=== PATIENT | male | born 1985 | race Caucasian/White ===

== ENCOUNTER 2016-03-22 17:53 | Emergency (ER) | payer BC ==
--- NOTE | 2016-03-22 18:44 | EDDOCDS ---
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 Acute neurological deficits are not present. Mechanism of Injury: Bending down. Adult Sepsis Screening: The patient does not have new or worsening altered mentation. Patient's respiratory rate is less than 22. Systolic blood pressure is greater than 100. Patient has a qSOFA score of 0- Negative Sepsis Screen. Suicide/Homicide risk assessment- the patient denies having any suicidal and/or homicidal ideations and does not present with any other emotional, behavioral or mental health complaints. Status: Patient is not a service delivery consultant or dependent. Transition of care: patient was not received from another setting of care. 17:59 Acuity: KOSTA Level 4 js13 17:59 Method Of Arrival: Walkin/Carried/Asstd js13 Triage Assessment: 18:02 General: Appears in no apparent distress, Behavior is appropriate for age, cooperative. js13 Pain: Location: low back area Pain currently is 8 out of 10 on a pain scale. Pt Declines HIV testing. Neurological: Level of Consciousness is awake, alert. Respiratory: Airway is patent Respiratory effort is even, unlabored, Respiratory pattern is regular, symmetrical. Derm: Skin is pink, warm & dry. Musculoskeletal: No deficits noted. Historical: - Allergies: SULFA (SULFONAMIDES); - Home Meds: 1. none - PMHx: Frequent Bloody Noses; Migraines; - PSHx: Septoplasty; Hernia repair; Pilonidal Cyst Removal; - Social history: Smoking status: Patient states was never smoker of tobacco. No barriers to communication noted, The patient speaks fluent Serbian. - Family history: Not pertinent. - : The pt / caregiver states he / she is not on anticoagulants. Home medication list is obtained from the patient. - Exposure Risk Screening:: None identified. Screenin:02 Screening information is obtained from the patient. Fall risk: No risks identified. js13 Assistance ADL's: requires no assistance with activities of daily living. Abuse/DV Screen: The patient / caregiver reports he/she is: not in a situation that causes fear, pain or injury. Nutritional screening: No deficits noted. Advance Directives: There is no active DNR order. home support is adequate. Assessment: 18:42 General: Appears in no apparent distress, comfortable, Behavior is appropriate for age, js13 cooperative. Pain: Location: low back area. Neurological: Level of Consciousness is awake, alert. Respiratory: Airway is patent. Derm: Skin is pink, warm & dry. Vital Signs: 17:56 BP 136 / 87; Pulse 117; Resp 18; Temp 97.5(O); Pulse Ox 98% on R/A; Weight 154.22 kg; sew Height 5 ft. 11 in. (180.34 cm); Pain 8/10; 17:56 Body Mass Index 47.42 (154.22 kg, 180.34 cm) sew Vitals: 17:56 Log In Time: March 22, 2016 at 17:50. sew ED Course: 17:54 Patient visited by Tiffanie Palacios. sew 17:54 Patient moved to Waiting sew 17:56 No Pcp is Private Physician. sew 17:57 Patient visited by Tiffanie Palacios. sew 17:57 Patient moved to Pre RCE sew 18:01 Triage Initiated js13 18:02 The patient / caregiver is instructed regarding the plan of care and ED course. js13 18:02 No IV's were initiated during this patient's visit. No procedures done that require js13 assistance. 18:03 Patient visited by Kaela Baptiste RN. js13 18:14 Patient moved to Triage 1 jb5 18:21 [facility]. ar2 18:21 Amanuel Arreola MD is Attending Physician. ar2 18:21 Patient visited by Malick Ochoa PA-C. ar2 18:37 Anders Eddy is Referral Physician. ar2 18:38 [facility] is Referral Physician. ar2 18:42 Kaela Baptiste RN is Primary Nurse. js13 Order Results: There are currently no results for this order. Outcome: 18:38 Discharge ordered by Provider. ar2 18:42 Discharge Assessment: Patient awake, alert and oriented x 3. No cognitive and/or js13 functional deficits noted. Patient verbalized understanding of disposition instructions. patient administered narcotics - no. The following High Risk Discharge criteria are identified: None. Discharged to home ambulatory. Condition: good Condition: stable. Discharge instructions given to patient, Instructed on discharge instructions, follow up and referral plans. medication usage, Demonstrated understanding of instructions, medications, Pt was receptive of discharge instructions/ teaching. Prescriptions given X 2, Work note provided to patient. No special radiology studies were completed. Property :Personal belongings accompany Pt. 18:43 Patient left the ED. js13 Signatures: Nguyen Mauro, CHINA PAINTER CHINA PAINTER jb5 Malick Ochoa PA-C PAKaela Lisa,RN RN js13 Tiffanie Palacios MTDD
--- NOTE | 2016-03-22 18:44 | EDDOCDS ---
Physician Documentation [facility] Name: Darius Da Silva Age: 30 yrs Sex: Male : 1985 Arrival Date: 03/22/2016 Time: 17:53 Bed Triage 1 Private MD: No Pcp Disposition: 03/22/16 18:38 Discharged to Home/Self Care. Impression: Strain of muscle, fascia and tendon of lower back. - Condition is Stable. - Discharge Instructions: Back Pain, Adult, Muscle Strain. - Prescriptions for Ibuprofen 800 mg Oral Tablet - take 1 tablet by ORAL route every 8 hours As needed take with food; 30 tablet. Cyclobenzaprine 10 mg Oral Tablet - take 1 tablet by ORAL route 3 times per day As needed; 15 tablet. - Work Release Form - 3 day, Medication Reconciliation, Local Pharmacy Hours form. - Follow up: Anders Eddy; When: As needed; Reason: Recheck today's complaints. [facility]; When: Call to arrange an appointment; Reason: Recheck today's complaints, To establish care. Follow up: Emergency Department; When: As needed; Reason: Worsening of conditions. - Problem is new. - Symptoms are unchanged. Historical: - Allergies: SULFA (SULFONAMIDES); - Home Meds: 1. none - PMHx: Frequent Bloody Noses; Migraines; - PSHx: Septoplasty; Hernia repair; Pilonidal Cyst Removal; - Social history: Smoking status: Patient states was never smoker of tobacco. No barriers to communication noted, The patient speaks fluent Sami. - Family history: Not pertinent. - : The pt / caregiver states he / she is not on anticoagulants. Home medication list is obtained from the patient. - Exposure Risk Screening:: None identified. Vital Signs: 03/22 17:56 BP 136 / 87; Pulse 117; Resp 18; Temp 97.5(O); Pulse Ox 98% on R/A; Weight 154.22 kg / sew 340 lbs; Height 5 ft. 11 in. (180.34 cm); Pain 8/10; 17:56 Body Mass Index 47.42 (154.22 kg, 180.34 cm) sew Signatures: Malick Ochoa PA-C PA-C ar2 Kaela Baptiste RN RN js13 MTDD
--- NOTE | 2016-03-26 09:42 | EDDOCDS ---
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 Acute neurological deficits are not present. Mechanism of Injury: Bending down. Adult Sepsis Screening: The patient does not have new or worsening altered mentation. Patient's respiratory rate is less than 22. Systolic blood pressure is greater than 100. Patient has a qSOFA score of 0- Negative Sepsis Screen. Suicide/Homicide risk assessment- the patient denies having any suicidal and/or homicidal ideations and does not present with any other emotional, behavioral or mental health complaints. Status: Patient is not a emergency services director or dependent. Transition of care: patient was not received from another setting of care. 17:59 Acuity: KOSTA Level 4 js13 17:59 Method Of Arrival: Walkin/Carried/Asstd js13 Triage Assessment: 18:02 General: Appears in no apparent distress, Behavior is appropriate for age, cooperative. js13 Pain: Location: low back area Pain currently is 8 out of 10 on a pain scale. Pt Declines HIV testing. Neurological: Level of Consciousness is awake, alert. Respiratory: Airway is patent Respiratory effort is even, unlabored, Respiratory pattern is regular, symmetrical. Derm: Skin is pink, warm & dry. Musculoskeletal: No deficits noted. Historical: - Allergies: SULFA (SULFONAMIDES); - Home Meds: 1. none - PMHx: Frequent Bloody Noses; Migraines; - PSHx: Septoplasty; Hernia repair; Pilonidal Cyst Removal; - Social history: Smoking status: Patient states was never smoker of tobacco. No barriers to communication noted, The patient speaks fluent Yoruba. - Family history: Not pertinent. - : The pt / caregiver states he / she is not on anticoagulants. Home medication list is obtained from the patient. - Exposure Risk Screening:: None identified. Screenin:02 Screening information is obtained from the patient. Fall risk: No risks identified. js13 Assistance ADL's: requires no assistance with activities of daily living. Abuse/DV Screen: The patient / caregiver reports he/she is: not in a situation that causes fear, pain or injury. Nutritional screening: No deficits noted. Advance Directives: There is no active DNR order. home support is adequate. Assessment: 18:42 General: Appears in no apparent distress, comfortable, Behavior is appropriate for age, js13 cooperative. Pain: Location: low back area. Neurological: Level of Consciousness is awake, alert. Respiratory: Airway is patent. Derm: Skin is pink, warm & dry. Vital Signs: 17:56 BP 136 / 87; Pulse 117; Resp 18; Temp 97.5(O); Pulse Ox 98% on R/A; Weight 154.22 kg; sew Height 5 ft. 11 in. (180.34 cm); Pain 8/10; 17:56 Body Mass Index 47.42 (154.22 kg, 180.34 cm) sew Vitals: 17:56 Log In Time: March 22, 2016 at 17:50. [facility] [place]: 17:54 Patient visited by Tiffanie Palacios. sew 17:54 Patient moved to Waiting sew 17:56 No Pcp is Private Physician. sew 17:57 Patient visited by Tiffanie Palacios. sew 17:57 Patient moved to Pre E sew 18:01 Triage Initiated js13 18:02 The patient / caregiver is instructed regarding the plan of care and ED course. js13 18:02 No IV's were initiated during this patient's visit. No procedures done that require js13 assistance. 18:03 Patient visited by Kaela Baptiste RN. js13 18:14 Patient moved to Triage 1 jb5 18:21 Malick Ochoa PA-C is PHCP. ar2 18:21 Amanuel Arreola MD is Attending Physician. ar2 18:21 Patient visited by Malick Ochoa PA-C. ar2 18:37 Anders Eddy is Referral Physician. ar2 18:38 [facility] is Referral Physician. ar2 18:42 Kaela Baptiste RN is Primary Nurse. js13 03/23 08:43 T-Sheet-- Draft Copy was scanned into [employer] and attached to record. [facility] Order Results: There are currently no results for this order. Outcome: 03/22 18:38 Discharge ordered by Provider. ar2 18:42 Discharge Assessment: Patient awake, alert and oriented x 3. No cognitive and/or js13 functional deficits noted. Patient verbalized understanding of disposition instructions. patient administered narcotics - no. The following High Risk Discharge criteria are identified: None. Discharged to home ambulatory. Condition: good Condition: stable. Discharge instructions given to patient, Instructed on discharge instructions, follow up and referral plans. medication usage, Demonstrated understanding of instructions, medications, Pt was receptive of discharge instructions/ teaching. Prescriptions given X 2, Work note provided to patient. No special radiology studies were completed. Property :Personal belongings accompany Pt. 18:43 Patient left the ED. js13 Signatures: Nguyen Mauro, CALLIE TRACKMOBILE OPERATOR jb5 Malick Ochoa, SOO PASowmya ar2 Kaela Baptiste,MARCIANO RN [email or web address] Philip, Tiffanie Fermin, Tiffanie younger Chart Complete BA
--- NOTE | 2016-03-26 09:42 | EDDOCDS ---
Physician Documentation [facility] Name: Darius Da Silva Age: 30 yrs Sex: Male : 1985 Arrival Date: 03/22/2016 Time: 17:53 Bed Triage 1 Private MD: No Pcp Disposition: 03/22/16 18:38 Discharged to Home/Self Care. Impression: Strain of muscle, fascia and tendon of lower back. - Condition is Stable. - Discharge Instructions: Back Pain, Adult, Muscle Strain. - Prescriptions for Ibuprofen 800 mg Oral Tablet - take 1 tablet by ORAL route every 8 hours As needed take with food; 30 tablet. Cyclobenzaprine 10 mg Oral Tablet - take 1 tablet by ORAL route 3 times per day As needed; 15 tablet. - Work Release Form - 3 day, Medication Reconciliation, Local Pharmacy Hours form. - Follow up: Anders Eddy; When: As needed; Reason: Recheck today's complaints. [facility]; When: Call to arrange an appointment; Reason: Recheck today's complaints, To establish care. Follow up: Emergency Department; When: As needed; Reason: Worsening of conditions. - Problem is new. - Symptoms are unchanged. Historical: - Allergies: SULFA (SULFONAMIDES); - Home Meds: 1. none - PMHx: Frequent Bloody Noses; Migraines; - PSHx: Septoplasty; Hernia repair; Pilonidal Cyst Removal; - Social history: Smoking status: Patient states was never smoker of tobacco. No barriers to communication noted, The patient speaks fluent Lao. - Family history: Not pertinent. - : The pt / caregiver states he / she is not on anticoagulants. Home medication list is obtained from the patient. - Exposure Risk Screening:: None identified. Vital Signs: 03/22 17:56 BP 136 / 87; Pulse 117; Resp 18; Temp 97.5(O); Pulse Ox 98% on R/A; Weight 154.22 kg / sew 340 lbs; Height 5 ft. 11 in. (180.34 cm); Pain 8/10; 17:56 Body Mass Index 47.42 (154.22 kg, 180.34 cm) sew MDM: 03/23 08:43 T-Sheet-- Draft Copy was scanned into [employer] and attached to record. [facility] Signatures: Malick Ochoa PA-C PA-C ar2 Kaela BaptisteRN RN js13 Tiffanie Fermin The chart was reviewed and I authenticate all verbal orders and agree with the evaluation and treatment provided.Attachments: 08:43 T-Sheet-- Draft Copy [facility] Chart Complete MTDD
--- NOTE | 2016-03-26 09:42 | EDDOCDS ---
Physician Documentation [facility] Name: Darius Da Silva Age: 30 yrs Sex: Male : 1985 Arrival Date: 03/22/2016 Time: 17:53 Bed Triage 1 Private MD: No Pcp Disposition: 03/22/16 18:38 Discharged to Home/Self Care. Impression: Strain of muscle, fascia and tendon of lower back. - Condition is Stable. - Discharge Instructions: Back Pain, Adult, Muscle Strain. - Prescriptions for Ibuprofen 800 mg Oral Tablet - take 1 tablet by ORAL route every 8 hours As needed take with food; 30 tablet. Cyclobenzaprine 10 mg Oral Tablet - take 1 tablet by ORAL route 3 times per day As needed; 15 tablet. - Work Release Form - 3 day, Medication Reconciliation, Local Pharmacy Hours form. - Follow up: Anders Eddy; When: As needed; Reason: Recheck today's complaints. [facility]; When: Call to arrange an appointment; Reason: Recheck today's complaints, To establish care. Follow up: Emergency Department; When: As needed; Reason: Worsening of conditions. - Problem is new. - Symptoms are unchanged. Historical: - Allergies: SULFA (SULFONAMIDES); - Home Meds: 1. none - PMHx: Frequent Bloody Noses; Migraines; - PSHx: Septoplasty; Hernia repair; Pilonidal Cyst Removal; - Social history: Smoking status: Patient states was never smoker of tobacco. No barriers to communication noted, The patient speaks fluent Lao. - Family history: Not pertinent. - : The pt / caregiver states he / she is not on anticoagulants. Home medication list is obtained from the patient. - Exposure Risk Screening:: None identified. Vital Signs: 03/22 17:56 BP 136 / 87; Pulse 117; Resp 18; Temp 97.5(O); Pulse Ox 98% on R/A; Weight 154.22 kg / sew 340 lbs; Height 5 ft. 11 in. (180.34 cm); Pain 8/10; 17:56 Body Mass Index 47.42 (154.22 kg, 180.34 cm) sew MDM: 03/23 08:43 T-Sheet-- Draft Copy was scanned into [employer] and attached to record. [facility] Signatures: Malick Ochoa PA-C PA-C ar2 Kaela BaptisteRN RN js13 Tiffanie Fermin The chart was reviewed and I authenticate all verbal orders and agree with the evaluation and treatment provided.Attachments: 08:43 T-Sheet-- Draft Copy [facility] Chart Complete MTDD
== END 2016-03-22 18:43 | disposition home or self-care (01) ==
LOC: M ED 17:53
DX: S39.012A Strain of muscle, fascia and tendon of lower back, initial encounter (principal); X50.1XXA Overexertion from prolonged static or awkward postures, initial encounter; Y92.9 Unspecified place or not applicable; Y93.89 Activity, other specified; Y99.0 Civilian activity done for income or pay; Z88.2 Allergy status to sulfonamides

== ENCOUNTER → 2017-05-13 | Outpatient (REF) | payer BC | LOC: M LAB REF 16:39 | DX: H90.41 Sensorineural hearing loss, unilateral, right ear, with unrestricted hearing on the contralateral side (principal) | CPT/HCPCS: 87205 ==

== ENCOUNTER → 2017-06-20 | Outpatient (REF) | payer BC | LOC: M LAB REF 12:26 | DX: L98.9 Disorder of the skin and subcutaneous tissue, unspecified (principal) ==

== ENCOUNTER → 2020-02-18 | Outpatient (CLI) | payer BC ==
[~2020-02-18] MED LIST: CIPR-249 PO; FLAG500T PO; PERC5TAB12 PO
--- NOTE | 2020-02-18 10:48 | REP ---
INDICATION: RIGHT KNEE PAIN. COMPARISON: None. TECHNIQUE: Five views. FINDINGS: Five views of the right knee demonstrate normal bones, joints and soft tissues. No fracture, subluxation, or joint effusion is seen. No erosive change.. . No opaque foreign body noted. IMPRESSION: Negative right knee radiographic series. <Electronically signed by John Marlow > 02/18/20 [id number]
== END ==
LOC: M WUC 10:07
PROVIDERS: ATTEND Physician Assistant Medical
DX: M25.561 Pain in right knee (principal)

== ENCOUNTER 2020-11-02 22:57 | Emergency (ER) | payer BC ==
[~2020-11-02] VITALS: Ht 180.3 cm; Wt 159.1 kg
[2020-11-02 22:58] VITALS: BP 137/93
--- NOTE | 2020-11-03 00:23 | REPVR ---
PROCEDURE INFORMATION: Exam: XR Right Knee Exam date and time: 11/02/2020 11:37 PM Age: 35 years old Clinical indication: Other: Right knee pain TECHNIQUE: Imaging protocol: XR Right knee. Views: 4 or more views. COMPARISON: CR KNEE COMPLETE 02/18/2020 10:23 AM FINDINGS: Bones/joints: There is suggestion of some amorphous calcification of the medial collateral ligament adjacent to the medial femoral condyle. No fracture. Joint effusion in the suprapatellar recess. Soft tissues: Normal. IMPRESSION: 1. Joint effusion. 2. Otherwise negative right knee. Electronically signed by: Aman Kelly On 11/03/2020 00:23:06 AM
== END 2020-11-03 01:28 | disposition left against medical advice (07) ==
LOC: M ED 22:57
DX: Z53.21 Procedure and treatment not carried out due to patient leaving prior to being seen by health care provider (principal)

== ENCOUNTER → 2020-12-22 | Outpatient (REF) ==
[2020-12-22 15:46] LABS: RSV AMPLIFICATION NEGATIVE (NEGATIVE)
== END ==
LOC: M EMP 14:56
PROVIDERS: ATTEND Family Medicine
DX: Z11.59 Encounter for screening for other viral diseases (principal)

== ENCOUNTER → 2021-04-04 | Outpatient (REF) | payer BC ==
[2021-04-04 17:46] LABS: HEMATOCRIT 40.5 % (42.0-52.0); HEMOGLOBIN 13.8 g/dl (13.5-17.5); MEAN CORPUSCULAR HEMOGLOBIN 29.4 pg (27.0-33.0); MEAN CORPUSCULAR HGB CONC 34.1 g/dl (32.0-36.5); MEAN CORPUSCULAR VOLUME 86.4 fl (80.0-96.0); PLATELET COUNT, AUTOMATED 240 10^3/uL (150-450); RED BLOOD COUNT 4.69 10^6/uL (4.30-6.10); WHITE BLOOD COUNT 6.2 10^3/uL (4.0-10.0)
[2021-04-04 18:40] LABS: HEMOGLOBIN A1c 6.1 %
[2021-04-04 19:46] LABS: ALBUMIN 4.1 GM/DL (3.2-5.2); ALT/SGPT 52 U/L (12-78); BILIRUBIN,TOTAL 0.5 MG/DL (0.2-1.0); BLOOD UREA NITROGEN 19 MG/DL (7-18); CARBON DIOXIDE LEVEL 27 MEQ/L (21-32); CHLORIDE LEVEL 103 MEQ/L (98-107); CHOLESTEROL LEVEL 179 MG/DL (<200); CHOLESTEROL RISK RATIO 11.187 (<5); CREATININE FOR GFR 0.98 MG/DL (0.70-1.30); FREE T4 0.93 NG/DL (0.76-1.46); GLOMERULAR FILTRATION RATE > 60.0 (>60); GLUCOSE, FASTING 148 MG/DL (70-100); HDL CHOLESTEROL 16 MG/DL (>40); NON-HDL-C 163 MG/DL; POTASSIUM SERUM 4.1 MEQ/L (3.5-5.1); SODIUM LEVEL 137 MEQ/L (136-145); TOTAL PROTEIN 7.7 GM/DL (6.4-8.2); TRIGLYCERIDES LEVEL 1262 MG/DL (<150)
== END ==
LOC: M SFHCADAM 15:20
PROVIDERS: ATTEND Physician Assistant
DX: E78.1 Pure hyperglyceridemia (principal); R73.9 Hyperglycemia, unspecified; Z87.19 Personal history of other diseases of the digestive system

== ENCOUNTER → 2021-07-17 | Outpatient (REF) | payer BC ==
[2021-07-17 11:28] LABS: HEMOGLOBIN A1c 6.4 %
[2021-07-17 11:43] LABS: ALT/SGPT 38 U/L (12-78); BILIRUBIN,TOTAL 1.1 MG/DL (0.2-1.0); BLOOD UREA NITROGEN 11 MG/DL (7-18); CALCIUM LEVEL 9.4 MG/DL (8.5-10.1); CARBON DIOXIDE LEVEL 26 MEQ/L (21-32); CHLORIDE LEVEL 103 MEQ/L (98-107); CHOLESTEROL LEVEL 113 MG/DL (<200); CHOLESTEROL RISK RATIO 7.533 (<5); CREATININE FOR GFR 0.89 MG/DL (0.70-1.30); GLOMERULAR FILTRATION RATE > 60.0 (>60); GLUCOSE, FASTING 163 MG/DL (70-100); HDL CHOLESTEROL 15 MG/DL (>40); NON-HDL-C 98 MG/DL; SODIUM LEVEL 137 MEQ/L (136-145); TOTAL PROTEIN 7.7 GM/DL (6.4-8.2); TRIGLYCERIDES LEVEL 776 MG/DL (<150)
== END ==
LOC: M LAB REF 09:33
PROVIDERS: ATTEND Physician Assistant
DX: E78.1 Pure hyperglyceridemia (principal); R73.9 Hyperglycemia, unspecified

== ENCOUNTER → 2021-08-14 | Outpatient (REF) | payer BC ==
[2021-08-14 12:09] LABS: BASO # 0.1 10^3/uL (0.0-0.2); BASO % 1.1 % (0.0-1.0); EOS # 0.3 10^3/uL (0.0-0.5); EOS % 3.7 % (0.0-3.0); HEMOGLOBIN 14.8 g/dl (13.5-17.5); LYMPH # 2.8 10^3/uL (1.5-5.0); LYMPH % 36.8 % (24.0-44.0); MEAN CORPUSCULAR HEMOGLOBIN 30.8 pg (27.0-33.0); MEAN CORPUSCULAR HGB CONC 35.2 g/dl (32.0-36.5); MEAN CORPUSCULAR VOLUME 87.5 fl (80.0-96.0); MONO # 0.5 10^3/uL (0.0-0.8); NEUTROPHILS # 3.9 10^3/uL (1.5-8.5); PLATELET COUNT, AUTOMATED 205 10^3/uL (150-450); WHITE BLOOD COUNT 7.6 10^3/uL (4.0-10.0)
[2021-08-14 12:44] LABS: ALBUMIN 3.9 GM/DL (3.2-5.2); ALT/SGPT 56 U/L (12-78); AMYLASE 32 U/L (25-115); BILIRUBIN,TOTAL 0.7 MG/DL (0.2-1.0); BLOOD UREA NITROGEN 14 MG/DL (7-18); CALCIUM LEVEL 9.1 MG/DL (8.5-10.1); CARBON DIOXIDE LEVEL 29 MEQ/L (21-32); CHLORIDE LEVEL 104 MEQ/L (98-107); CREATININE FOR GFR 0.98 MG/DL (0.70-1.30); GLOMERULAR FILTRATION RATE > 60.0 (>60); GLUCOSE, FASTING 174 MG/DL (70-100); LIPASE 102 U/L (73-393); POTASSIUM SERUM 4.4 MEQ/L (3.5-5.1); SODIUM LEVEL 136 MEQ/L (136-145); TOTAL PROTEIN 7.8 GM/DL (6.4-8.2)
== END ==
LOC: M LAB REF 11:04
PROVIDERS: ATTEND Physician Assistant
DX: R10.13 Epigastric pain (principal)

== ENCOUNTER → 2021-08-21 | Outpatient (REF) | payer BC ==
[2021-08-21 12:44] LABS: ALBUMIN 4.1 GM/DL (3.2-5.2); ALT/SGPT 71 U/L (12-78); BILIRUBIN,TOTAL 0.6 MG/DL (0.2-1.0); BLOOD UREA NITROGEN 20 MG/DL (7-18); CALCIUM LEVEL 9.7 MG/DL (8.5-10.1); CARBON DIOXIDE LEVEL 27 MEQ/L (21-32); CHLORIDE LEVEL 103 MEQ/L (98-107); CHOLESTEROL LEVEL 188 MG/DL (<200); CHOLESTEROL RISK RATIO 11.058 (<5); CREATININE FOR GFR 0.92 MG/DL (0.70-1.30); GLOMERULAR FILTRATION RATE > 60.0 (>60); GLUCOSE, FASTING 163 MG/DL (70-100); HDL CHOLESTEROL 17 MG/DL (>40); NON-HDL-C 171 MG/DL; POTASSIUM SERUM 4.5 MEQ/L (3.5-5.1); SODIUM LEVEL 137 MEQ/L (136-145); TRIGLYCERIDES LEVEL 1489 MG/DL (<150)
== END ==
LOC: M LAB REF 11:01
PROVIDERS: ATTEND Physician Assistant
DX: E78.1 Pure hyperglyceridemia (principal); E66.01 Morbid (severe) obesity due to excess calories; R73.03 Prediabetes

== ENCOUNTER → 2021-11-26 | Outpatient (REF) | payer BC ==
[2021-11-26 09:44] LABS: ALBUMIN 3.9 GM/DL (3.2-5.2); ALT/SGPT 42 U/L (12-78); BILIRUBIN,TOTAL 0.7 MG/DL (0.2-1.0); BLOOD UREA NITROGEN 13 MG/DL (7-18); CALCIUM LEVEL 8.9 MG/DL (8.5-10.1); CARBON DIOXIDE LEVEL 28 MEQ/L (21-32); CHLORIDE LEVEL 104 MEQ/L (98-107); CHOLESTEROL LEVEL 140 MG/DL (<200); CHOLESTEROL RISK RATIO 11.666 (<5); CREATININE FOR GFR 1.05 MG/DL (0.70-1.30); GLOMERULAR FILTRATION RATE > 60.0 (>60); GLUCOSE, FASTING 158 MG/DL (70-100); HDL CHOLESTEROL 12 MG/DL (>40); NON-HDL-C 128 MG/DL; POTASSIUM SERUM 3.9 MEQ/L (3.5-5.1); SODIUM LEVEL 135 MEQ/L (136-145); TOTAL PROTEIN 7.2 GM/DL (6.4-8.2); TRIGLYCERIDES LEVEL 1291 MG/DL (<150)
[2021-11-26 10:08] LABS: HEMOGLOBIN A1c 6.1 %
== END ==
LOC: M LAB REF 08:20
PROVIDERS: ATTEND Physician Assistant
DX: E78.1 Pure hyperglyceridemia (principal); R73.03 Prediabetes; Z87.19 Personal history of other diseases of the digestive system

== ENCOUNTER → 2021-12-26 | Outpatient (REF) | LOC: M EMP 12:15 | PROVIDERS: ATTEND Family Medicine | DX: Z20.822 Contact with and (suspected) exposure to COVID-19 (principal) ==

== ENCOUNTER → 2022-02-04 | Outpatient (REF) | payer BC ==
[2022-02-04 18:06] LABS: APPEARANCE, URINE MANUAL CLEAR (CLEAR); COLOR, URINE MANUAL YELLOW (YELLOW)
[2022-02-04 18:07] LABS: BILIRUBIN, URINE MANUAL NEGATIVE (NEGATIVE); BLOOD URINE MANUAL NEGATIVE (NEGATIVE); GLUCOSE, URINE (UA) MANUAL NEGATIVE (NEGATIVE); KETONE, URINE MANUAL NEGATIVE (NEGATIVE); LEUKOCYTE ESTERASE, URINE MAN NEGATIVE (NEGATIVE); NITRITE, URINE MANUAL NEGATIVE (NEGATIVE); PROTEIN, URINE MANUAL NEGATIVE (NEGATIVE); UROBILINOGEN, URINE MANUAL NORMAL (NORMAL)
== END ==
LOC: M SFHCPLAZ 17:15
PROVIDERS: ATTEND Physician Assistant
DX: R30.0 Dysuria (principal)

== ENCOUNTER → 2022-03-29 | Outpatient (REF) | payer BC ==
[2022-03-29 09:20] LABS: ALBUMIN 4.2 G/DL (3.2-5.2); ALKALINE PHOSPHATASE 59 U/L (46-116); ALT/SGPT 41 U/L (7.0-40); AST/SGOT 29 U/L (<34); BILIRUBIN,TOTAL 0.4 MG/DL (0.3-1.2); BLOOD UREA NITROGEN 10 MG/DL (9-23); CALCIUM LEVEL 9.5 MG/DL (8.5-10.1); CARBON DIOXIDE LEVEL 26 MMOL/L (20-31); CHLORIDE LEVEL 104 MMOL/L (98-107); CHOLESTEROL LEVEL 111 MG/DL (<200); CHOLESTEROL RISK RATIO 6.49 (<5); CREATININE FOR GFR 0.98 MG/DL (0.70-1.30); GLOMERULAR FILTRATION RATE > 60.0 (>60); GLUCOSE, FASTING 124 MG/DL (60-100); HDL CHOLESTEROL 17.1 MG/DL (>40); NON-HDL-C 94 MG/DL; POTASSIUM SERUM 4.6 MMOL/L (3.5-5.1); SODIUM LEVEL 137 MMOL/L (136-145); TOTAL PROTEIN 7.3 G/DL (5.7-8.2); TRIGLYCERIDES LEVEL 652 MG/DL (<150)
[2022-03-29 09:47] LABS: HEMOGLOBIN A1c 5.5 % (4.0-6.0)
== END ==
LOC: M LAB REF 08:35
PROVIDERS: ATTEND Physician Assistant
DX: F32.2 Major depressive disorder, single episode, severe without psychotic features (principal); E78.1 Pure hyperglyceridemia; R73.03 Prediabetes

== ENCOUNTER → 2022-04-25 | Outpatient (CLI) | payer BC ==
[~2022-04-25] MED LIST changes: +GASTROGRAFIN SOLUTION 30ML As Ordered ONE; +ISOVUE-370 76% 100ML VIAL As Ordered ONE
== END ==
LOC: M RAD 08:50
PROVIDERS: ATTEND Physician Assistant
DX: R10.13 Epigastric pain (principal); Z87.19 Personal history of other diseases of the digestive system

== ENCOUNTER 2022-04-27 06:38 | Emergency (ER) | payer BC ==
[~2022-04-27] VITALS: Ht 180.3 cm; Wt 151.6 kg
[~2022-04-27 06:38] MED LIST changes: -GASTROGRAFIN SOLUTION 30ML As Ordered ONE; -ISOVUE-370 76% 100ML VIAL As Ordered ONE
[2022-04-27 07:55] LABS: BASO # 0.1 10^3/uL (0.0-0.2); BASO % 0.8 % (0.0-1.0); HEMATOCRIT 42.2 % (42.0-52.0); HEMOGLOBIN 14.5 g/dl (13.5-17.5); LYMPH # 0.6 10^3/uL (1.5-5.0); LYMPH % 7.7 % (24.0-44.0); MEAN CORPUSCULAR HEMOGLOBIN 29.2 pg (27.0-33.0); MEAN CORPUSCULAR HGB CONC 34.4 g/dl (32.0-36.5); MEAN CORPUSCULAR VOLUME 85.1 fl (80.0-96.0); MONO # 0.4 10^3/uL (0.0-0.8); MONO % 5.3 % (2.0-8.0); NEUTROPHILS # 6.5 10^3/uL (1.5-8.5); NEUTROPHILS % 85.7 % (36.0-66.0); PLATELET COUNT, AUTOMATED 177 10^3/uL (150-450); RED BLOOD COUNT 4.96 10^6/uL (4.30-6.10); WHITE BLOOD COUNT 7.5 10^3/uL (4.0-10.0)
[2022-04-27] MEDS ORDERED: GI COCKTAIL 50ML BTL(HYOSCYAMINE/MAALOX/LIDOCAINE VISCOUS)(1:3:1) PO ONE (08:00)
[2022-04-27] MEDS ORDERED: SUCRALFATE 1 GM TAB PO ONE (08:00)
[2022-04-27] MEDS ORDERED: NS 1,000 ML IV ONE ×3 (08:00→10:40)
[2022-04-27] MEDS ORDERED: ACETAMINOPHEN 500 MG TAB PO ONE (08:20)
[2022-04-27 08:24] LABS: ERYTHROCYTE SEDIMENTATION RATE 15 mm/hr (0-15); LIPASE 24 U/L (12-53)
[2022-04-27 08:30] LABS: ALBUMIN 3.7 G/DL (3.2-5.2); ALKALINE PHOSPHATASE 64 U/L (46-116); ALT/SGPT 33 U/L (7.0-40); AST/SGOT 29 U/L (<34); BILIRUBIN,DIRECT 0.3 MG/DL (<0.4); BILIRUBIN,TOTAL 1.2 MG/DL (0.3-1.2); BLOOD UREA NITROGEN 12 MG/DL (9-23); CALCIUM LEVEL 8.5 MG/DL (8.5-10.1); CARBON DIOXIDE LEVEL 21 MMOL/L (20-31); CHLORIDE LEVEL 101 MMOL/L (98-107); CK-MB VALUE MASS < 1.0 NG/ML (<3.6); CREATININE FOR GFR 0.91 MG/DL (0.70-1.30); GLOMERULAR FILTRATION RATE > 60.0 (>60); GLUCOSE, FASTING 150 MG/DL (60-100); SODIUM LEVEL 134 MMOL/L (136-145); TOTAL PROTEIN 6.6 G/DL (5.7-8.2)
[2022-04-27 08:41] LABS: CPK CREATINE PHOSPHOKINASE 144 U/L (46-171); MB/CK RELATIVE INDEX 0.69 (< OR =4)
[2022-04-27 08:44] LABS: INR 0.96; PARTIAL THROMBOPLASTIN TIME 29.6 SECONDS (24.8-34.2)
[2022-04-27] MEDS ORDERED: ISOVUE-370 76% 100ML VIAL As Ordered ONE (09:19)
[2022-04-27 10:05] LABS: CK-MB VALUE MASS < 1.0 NG/ML (<3.6)
[2022-04-27 10:30] LABS: CPK CREATINE PHOSPHOKINASE 131 U/L (46-171); MB/CK RELATIVE INDEX 0.76 (< OR =4)
[2022-04-27 13:35] VITALS: BP 134/84
[2022-04-27] MEDS ORDERED: IBUPROFEN 100MG 5ML ORAL SUSP UDC PO ONE (13:35)
[2022-04-27] MEDS: IBUPROFEN 800 MG TAB PO ONE ×2 (13:46→13:50)
== END 2022-04-27 14:00 | disposition home or self-care (01) ==
LOC: M ED 06:38
DX: A08.32 Astrovirus enteritis (principal); E11.9 Type 2 diabetes mellitus without complications; I10 Essential (primary) hypertension; K21.9 Gastro-esophageal reflux disease without esophagitis; E78.5 Hyperlipidemia, unspecified; E66.9 Obesity, unspecified; Z88.2 Allergy status to sulfonamides

== ENCOUNTER 2022-06-27 10:14 | Day surgery (SDC) | payer BC ==
[~2022-06-27] VITALS: Ht 182.9 cm; Wt 149.7 kg
[~2022-06-27 10:14] MED LIST changes: +ATOR40TA75 PO; +BUPR-368 PO; +FAMO40TA3 PO; +FENO145T7 PO; +METF500T13 PO
[2022-06-27] MEDS ORDERED: fentaNYL 100 MCG/2 ML INJECTION As Ordered ONE (11:31)
[2022-06-27] MEDS ORDERED: propofoL 500 MG/50 ML VIAL As Ordered ONE (11:31)
[2022-06-27] MEDS ORDERED: LIDOCAINE 2% 100MG/5ML SDV (FOR ANES.) As Ordered ONE (11:31)
[2022-06-27 12:20] VITALS: BP 155/93
== END 2022-06-27 12:21 | disposition home or self-care (01) ==
LOC: M OPP 10:14
PROVIDERS: ATTEND Surgery
DX: K21.9 Gastro-esophageal reflux disease without esophagitis (principal); D12.6 Benign neoplasm of colon, unspecified; K31.89 Other diseases of stomach and duodenum; I10 Essential (primary) hypertension; E78.5 Hyperlipidemia, unspecified; R73.03 Prediabetes; F32.A Depression, unspecified; G43.909 Migraine, unspecified, not intractable, without status migrainosus; Z88.2 Allergy status to sulfonamides; Z79.84 Long term (current) use of oral hypoglycemic drugs; Z79.899 Other long term (current) drug therapy
CPT/HCPCS: 43239; 45380; 45385; 88305; J3010

== ENCOUNTER → 2022-08-14 | Outpatient (REF) | payer BC ==
[2022-08-14 10:09] LABS: HEMATOCRIT 41.9 % (42.0-52.0); HEMOGLOBIN 14.7 g/dl (13.5-17.5); MEAN CORPUSCULAR HEMOGLOBIN 29.8 pg (27.0-33.0); MEAN CORPUSCULAR HGB CONC 35.1 g/dl (32.0-36.5); MEAN CORPUSCULAR VOLUME 84.8 fl (80.0-96.0); PLATELET COUNT, AUTOMATED 216 10^3/uL (150-450); RED BLOOD COUNT 4.94 10^6/uL (4.30-6.10); WHITE BLOOD COUNT 7.2 10^3/uL (4.0-10.0)
[2022-08-14 10:46] LABS: FREE T4 0.97 NG/DL (0.89-1.76); THYROID STIMULATING HORMONE 1.869 uIU/ML (0.55-4.78)
[2022-08-14 10:47] LABS: VITAMIN B12 LEVEL 218 PG/ML (211-911)
[2022-08-14 10:50] LABS: HEMOGLOBIN A1c 6.1 % (4.0-6.0)
[2022-08-14 10:51] LABS: ALBUMIN 4.1 G/DL (3.2-5.2); ALKALINE PHOSPHATASE 65 U/L (46-116); ALT/SGPT 28 U/L (7.0-40); AST/SGOT 22 U/L (<34); BILIRUBIN,TOTAL 0.6 MG/DL (0.3-1.2); BLOOD UREA NITROGEN 16 MG/DL (9-23); CALCIUM LEVEL 8.8 MG/DL (8.5-10.1); CARBON DIOXIDE LEVEL 26 MMOL/L (20-31); CHLORIDE LEVEL 101 MMOL/L (98-107); CHOLESTEROL LEVEL 180 MG/DL (<200); CHOLESTEROL RISK RATIO 9.09 (<5); CREATININE FOR GFR 0.95 MG/DL (0.70-1.30); FOLATE 11.4 NG/ML (>5.4); GLOMERULAR FILTRATION RATE > 60.0 (>60); GLUCOSE, FASTING 132 MG/DL (60-100); HDL CHOLESTEROL 19.8 MG/DL (>40); NON-HDL-C 160.2 MG/DL; SODIUM LEVEL 137 MMOL/L (136-145); TRIGLYCERIDES LEVEL 1593 MG/DL (<150)
== END ==
LOC: M SFHCADAM 09:36
PROVIDERS: ATTEND Physician Assistant
DX: E78.1 Pure hyperglyceridemia (principal); Z87.19 Personal history of other diseases of the digestive system; R73.03 Prediabetes

== ENCOUNTER → 2022-10-16 | Outpatient (REF) | payer BC | LOC: M LAB REF 16:19 | PROVIDERS: ATTEND Surgery | DX: D48.5 Neoplasm of uncertain behavior of skin (principal) ==

== ENCOUNTER → 2023-03-24 | Outpatient (REF) | payer BC ==
[2023-03-24 09:46] LABS: HEMATOCRIT 42.3 % (42.0-52.0); HEMOGLOBIN 14.5 g/dl (13.5-17.5); MEAN CORPUSCULAR HEMOGLOBIN 29.4 pg (27.0-33.0); MEAN CORPUSCULAR HGB CONC 34.3 g/dl (32.0-36.5); MEAN CORPUSCULAR VOLUME 85.6 fl (80.0-96.0); PLATELET COUNT, AUTOMATED 207 10^3/uL (150-450); RED BLOOD COUNT 4.94 10^6/uL (4.30-6.10); WHITE BLOOD COUNT 6.2 10^3/uL (4.0-10.0)
[2023-03-24 10:16] LABS: THYROID STIMULATING HORMONE 1.625 uIU/ML (0.55-4.78)
[2023-03-24 10:17] LABS: FREE T4 1.06 NG/DL (0.89-1.76); HEMOGLOBIN A1c 6.1 % (4.0-6.0); VITAMIN B12 LEVEL 260 PG/ML (211-911)
[2023-03-24 10:23] LABS: ALBUMIN 4.1 G/DL (3.2-5.2); ALKALINE PHOSPHATASE 61 U/L (46-116); ALT/SGPT 28 U/L (7.0-40); AST/SGOT 17 U/L (<34); BILIRUBIN,TOTAL 0.6 MG/DL (0.3-1.2); BLOOD UREA NITROGEN 15 MG/DL (9-23); CALCIUM LEVEL 9.3 MG/DL (8.5-10.1); CARBON DIOXIDE LEVEL 25 MMOL/L (20-31); CHLORIDE LEVEL 105 MMOL/L (98-107); CHOLESTEROL LEVEL 176 MG/DL (<200); CHOLESTEROL RISK RATIO 8.54 (<5); CREATININE FOR GFR 0.91 MG/DL (0.70-1.30); FOLATE 14.9 NG/ML (>5.4); GLOMERULAR FILTRATION RATE > 60.0 (>60); GLUCOSE, FASTING 131 MG/DL (60-100); HDL CHOLESTEROL 20.6 MG/DL (>40); NON-HDL-C 155.4 MG/DL; POTASSIUM SERUM 4.4 MMOL/L (3.5-5.1); SODIUM LEVEL 137 MMOL/L (136-145); TOTAL PROTEIN 6.9 G/DL (5.7-8.2); TRIGLYCERIDES LEVEL 1418 MG/DL (<150)
== END ==
LOC: M SFHCADAM 09:16
PROVIDERS: ATTEND Physician Assistant
DX: E78.1 Pure hyperglyceridemia (principal); R73.03 Prediabetes; Z87.19 Personal history of other diseases of the digestive system

== ENCOUNTER → 2023-06-27 | Outpatient (CLI) | payer BC | LOC: M LAB 06:15 | PROVIDERS: ATTEND Physician Assistant | DX: Z53.9 Procedure and treatment not carried out, unspecified reason (principal) ==

== ENCOUNTER → 2023-09-26 | Outpatient (REF) | payer BC ==
[2023-09-26 09:57] LABS: HEMATOCRIT 42.3 % (42.0-52.0); HEMOGLOBIN 15.9 g/dl (13.5-17.5); MEAN CORPUSCULAR HEMOGLOBIN 31.4 pg (27.0-33.0); MEAN CORPUSCULAR VOLUME 83.6 fl (80.0-96.0); PLATELET COUNT, AUTOMATED 217 10^3/uL (150-450); RED BLOOD COUNT 5.06 10^6/uL (4.30-6.10); WHITE BLOOD COUNT 7.4 10^3/uL (4.0-10.0)
[2023-09-26 10:14] LABS: HEMOGLOBIN A1c 6.6 % (4.0-6.0)
[2023-09-26 10:20] LABS: MEAN CORPUSCULAR HGB CONC 37.6 g/dl (32.0-36.5)
[2023-09-26 10:28] LABS: THYROID STIMULATING HORMONE 2.208 uIU/ML (0.55-4.78)
[2023-09-26 10:29] LABS: FREE T4 1.11 NG/DL (0.89-1.76)
[2023-09-26 10:40] LABS: ALBUMIN 4.4 G/DL (3.2-5.2); ALKALINE PHOSPHATASE 85 U/L (46-116); ALT/SGPT 34 U/L (7.0-40); AST/SGOT 28 U/L (<34); BILIRUBIN,TOTAL 0.5 MG/DL (0.3-1.2); BLOOD UREA NITROGEN 13 MG/DL (9-23); CALCIUM LEVEL 9.9 MG/DL (8.5-10.1); CARBON DIOXIDE LEVEL 25 MMOL/L (20-31); CHLORIDE LEVEL 99 MMOL/L (98-107); CHOLESTEROL LEVEL 306 MG/DL (<200); CHOLESTEROL RISK RATIO 17.19 (<5); GLOMERULAR FILTRATION RATE > 60.0 (>60); GLUCOSE, FASTING 151 MG/DL (60-100); HDL CHOLESTEROL 17.8 MG/DL (>40); NON-HDL-C 288.2 MG/DL; POTASSIUM SERUM 4.6 MMOL/L (3.5-5.1); SODIUM LEVEL 134 MMOL/L (136-145); TRIGLYCERIDES LEVEL 3256 MG/DL (<150)
== END ==
LOC: M SFHCADAM 09:21
PROVIDERS: ATTEND Physician Assistant
DX: E78.1 Pure hyperglyceridemia (principal); F32.2 Major depressive disorder, single episode, severe without psychotic features

== ENCOUNTER 2023-10-19 19:33 | Emergency (ER) | payer BC ==
[~2023-10-19] VITALS: Ht 180.3 cm; Wt 152.7 kg
[2023-10-19] MEDS: NS 1,000 ML IV ONE (20:35)
[2023-10-19 20:51] LABS: BASO # 0.1 10^3/uL (0.0-0.2); EOS # 0.1 10^3/uL (0.0-0.5); EOS % 1.1 % (0.0-3.0); HEMATOCRIT 40.2 % (42.0-52.0); HEMOGLOBIN 13.7 g/dl (13.5-17.5); LYMPH # 2.4 10^3/uL (1.5-5.0); LYMPH % 33.1 % (24.0-44.0); MEAN CORPUSCULAR HEMOGLOBIN 29.5 pg (27.0-33.0); MEAN CORPUSCULAR HGB CONC 34.1 g/dl (32.0-36.5); MEAN CORPUSCULAR VOLUME 86.5 fl (80.0-96.0); MONO # 0.5 10^3/uL (0.0-0.8); MONO % 6.3 % (2.0-8.0); NEUTROPHILS # 4.2 10^3/uL (1.5-8.5); NEUTROPHILS % 58.2 % (36.0-66.0); PLATELET COUNT, AUTOMATED 195 10^3/uL (150-450); RED BLOOD COUNT 4.65 10^6/uL (4.30-6.10); WHITE BLOOD COUNT 7.2 10^3/uL (4.0-10.0)
[2023-10-19 20:54] LABS: APPEARANCE, URINE CLEAR (CLEAR); BACTERIA, URINE AUTO NEGATIVE (NEGATIVE); BILIRUBIN, URINE AUTO NEGATIVE (NEGATIVE); BLOOD, URINE BLOOD NEGATIVE (NEGATIVE); COLOR, URINE YELLOW (YELLOW); GLUCOSE, URINE (UA) AUTO NEGATIVE (NEGATIVE); KETONE, URINE AUTO NEGATIVE (NEGATIVE); LEUKOCYTE ESTERASE, URINE AUTO NEGATIVE (NEGATIVE); MUCUS, URINE SMALL (NEGATIVE); NITRITE, URINE AUTO NEGATIVE (NEGATIVE); PROTEIN, URINE AUTO NEGATIVE (NEGATIVE); RBC, URINE AUTO 0 /HPF (0-3); SQUAMOUS EPITHELIAL CELL UR AU 0 /HPF (0-6); WBC, URINE AUTO 1 /HPF (0-3)
[2023-10-19 21:14] LABS: CK-MB VALUE MASS < 1.0 NG/ML (<3.6)
[2023-10-19 21:16] LABS: ALBUMIN 4.1 G/DL (3.2-5.2); ALKALINE PHOSPHATASE 79 U/L (46-116); ALT/SGPT 31 U/L (7.0-40); AST/SGOT 19 U/L (<34); BILIRUBIN,TOTAL 0.5 MG/DL (0.3-1.2); BLOOD UREA NITROGEN 13 MG/DL (9-23); CALCIUM LEVEL 9.2 MG/DL (8.5-10.1); CARBON DIOXIDE LEVEL 24 MMOL/L (20-31); CHLORIDE LEVEL 108 MMOL/L (98-107); CREATININE FOR GFR 0.96 MG/DL (0.70-1.30); GLOMERULAR FILTRATION RATE > 60.0 (>60); GLUCOSE, FASTING 153 MG/DL (60-100); MAGNESIUM LEVEL 1.7 MG/DL (1.8-2.4); POTASSIUM SERUM 4.2 MMOL/L (3.5-5.1); SODIUM LEVEL 140 MMOL/L (136-145); TOTAL PROTEIN 6.9 G/DL (5.7-8.2)
[2023-10-19 21:18] LABS: CPK CREATINE PHOSPHOKINASE 143 U/L (46-171); MB/CK RELATIVE INDEX 0.69 (< OR =4)
[2023-10-19] MEDS: KETOROLAC 30 MG/ML 1ML VIAL IV ONE (23:32)
[2023-10-19 23:48] VITALS: BP 116/76; TEMP 97.8; O2SAT 97
== END 2023-10-20 00:18 | disposition home or self-care (01) ==
LOC: M ED 19:33
DX: T75.4XXA Electrocution, initial encounter (principal); E11.9 Type 2 diabetes mellitus without complications; E78.5 Hyperlipidemia, unspecified; K21.9 Gastro-esophageal reflux disease without esophagitis; F32.A Depression, unspecified; Z79.84 Long term (current) use of oral hypoglycemic drugs; Z79.899 Other long term (current) drug therapy; Z88.2 Allergy status to sulfonamides
CPT/HCPCS: 71046; 80053; 81001; 82550; 82553; 83735; 84311; 84484; 85025; 93005; 96374; 99284; J1885

== ENCOUNTER → 2023-12-02 | Outpatient (CLI) | payer BC ==
[2023-12-02 07:15] LABS: HEMOGLOBIN A1c 5.5 % (4.0-6.0)
[2023-12-02 07:33] LABS: ALBUMIN 3.9 G/DL (3.2-5.2); ALKALINE PHOSPHATASE 81 U/L (46-116); ALT/SGPT 29 U/L (7.0-40); AST/SGOT 14 U/L (<34); BILIRUBIN,TOTAL 0.5 MG/DL (0.3-1.2); BLOOD UREA NITROGEN 13 MG/DL (9-23); CARBON DIOXIDE LEVEL 28 MMOL/L (20-31); CHLORIDE LEVEL 106 MMOL/L (98-107); CHOLESTEROL LEVEL 103 MG/DL (<200); CREATININE FOR GFR 1.06 MG/DL (0.70-1.30); GLOMERULAR FILTRATION RATE > 60.0 (>60); GLUCOSE, FASTING 123 MG/DL (60-100); HDL CHOLESTEROL 18.7 MG/DL (>40); NON-HDL-C 84.3 MG/DL; POTASSIUM SERUM 3.8 MMOL/L (3.5-5.1); SODIUM LEVEL 138 MMOL/L (136-145); TOTAL PROTEIN 6.9 G/DL (5.7-8.2); TRIGLYCERIDES LEVEL 428 MG/DL (<150)
== END ==
LOC: M LAB 06:13
PROVIDERS: ATTEND Family Medicine
DX: E11.9 Type 2 diabetes mellitus without complications (principal); E78.1 Pure hyperglyceridemia

== ENCOUNTER → 2024-03-23 | Outpatient (REF) | payer BC ==
[2024-03-23 13:04] LABS: INR 0.97; PARTIAL THROMBOPLASTIN TIME 29.3 SECONDS (24.8-34.2); PROTHROMBIN TIME 13.2 SECONDS (12.5-14.5)
[2024-03-23 13:08] LABS: BASO # 0.1 10^3/uL (0.0-0.2); BASO % 1.2 % (0.0-1.0); EOS % 0.2 % (0.0-3.0); HEMATOCRIT 44.4 % (42.0-52.0); HEMOGLOBIN 15.2 g/dl (13.5-17.5); LYMPH # 2.9 10^3/uL (1.5-5.0); LYMPH % 28.9 % (24.0-44.0); MEAN CORPUSCULAR HEMOGLOBIN 29.2 pg (27.0-33.0); MEAN CORPUSCULAR HGB CONC 34.2 g/dl (32.0-36.5); MEAN CORPUSCULAR VOLUME 85.4 fl (80.0-96.0); MONO # 0.7 10^3/uL (0.0-0.8); MONO % 6.8 % (2.0-8.0); NEUTROPHILS # 6.2 10^3/uL (1.5-8.5); NEUTROPHILS % 62.6 % (36.0-66.0); PLATELET COUNT, AUTOMATED 167 10^3/uL (150-450); WHITE BLOOD COUNT 9.9 10^3/uL (4.0-10.0)
[2024-03-23 13:09] LABS: ALBUMIN 4.2 G/DL (3.2-5.2); ALKALINE PHOSPHATASE 82 U/L (40-129); ALT/SGPT 29 U/L (7.0-40); AST/SGOT 18 U/L (<34); BILIRUBIN,TOTAL 0.4 MG/DL (0.3-1.2); BLOOD UREA NITROGEN 13 MG/DL (9-23); CARBON DIOXIDE LEVEL 26 MMOL/L (20-31); CHLORIDE LEVEL 105 MMOL/L (98-107); CREATININE FOR GFR 1.02 MG/DL (0.70-1.30); GLOMERULAR FILTRATION RATE > 60.0 (>60); GLUCOSE, FASTING 112 MG/DL (60-100); POTASSIUM SERUM 4.3 MMOL/L (3.5-5.1); SODIUM LEVEL 140 MMOL/L (136-145); TOTAL PROTEIN 7.6 G/DL (5.7-8.2)
== END ==
LOC: M SFHCADAM 09:04
PROVIDERS: ATTEND Physician Assistant
DX: E11.9 Type 2 diabetes mellitus without complications (principal); E78.1 Pure hyperglyceridemia; E66.01 Morbid (severe) obesity due to excess calories; R04.0 Epistaxis; Z28.21 Immunization not carried out because of patient refusal

== ENCOUNTER → 2024-06-22 | Outpatient (REF) | payer BC ==
[2024-06-22 09:57] LABS: HEMOGLOBIN A1c 5.1 % (4.0-6.0)
[2024-06-22 10:10] LABS: ALBUMIN 4.8 G/DL (3.2-5.2); ALKALINE PHOSPHATASE 68 U/L (40-129); ALT/SGPT 33 U/L (7.0-40); AST/SGOT 23 U/L (<34); BILIRUBIN,TOTAL 0.5 MG/DL (0.3-1.2); BLOOD UREA NITROGEN 12 MG/DL (9-23); CALCIUM LEVEL 9.6 MG/DL (8.5-10.1); CARBON DIOXIDE LEVEL 27 MMOL/L (20-31); CHLORIDE LEVEL 103 MMOL/L (98-107); CHOLESTEROL LEVEL 115 MG/DL (<200); CHOLESTEROL RISK RATIO 4.97 (<5); GLOMERULAR FILTRATION RATE > 60.0 (>60); GLUCOSE, FASTING 106 MG/DL (60-100); HDL CHOLESTEROL 23.1 MG/DL (>40); LDL CHOLESTEROL 19.5 MG/DL (<100); NON-HDL-C 91.9 MG/DL; POTASSIUM SERUM 4.3 MMOL/L (3.5-5.1); SODIUM LEVEL 139 MMOL/L (136-145); TOTAL PROTEIN 7.6 G/DL (5.7-8.2); TRIGLYCERIDES LEVEL 362 MG/DL (<150)
== END ==
LOC: M SFHCADAM 09:13
PROVIDERS: ATTEND Physician Assistant
DX: E11.9 Type 2 diabetes mellitus without complications (principal); E78.1 Pure hyperglyceridemia; Z28.21 Immunization not carried out because of patient refusal; R04.0 Epistaxis; E66.01 Morbid (severe) obesity due to excess calories

== ENCOUNTER → 2024-09-29 | Outpatient (REF) | payer BC ==
[2024-09-29 11:44] LABS: ALT/SGPT 37 U/L (7.0-40); AST/SGOT 22 U/L (<34); CALCIUM LEVEL 9.7 MG/DL (8.5-10.1); CARBON DIOXIDE LEVEL 26 MMOL/L (20-31); CHLORIDE LEVEL 103 MMOL/L (98-107); CHOLESTEROL LEVEL 126 MG/DL (<200); CHOLESTEROL RISK RATIO 6.30 (<5); CREATININE FOR GFR 0.94 MG/DL (0.70-1.30); FREE T4 1.23 NG/DL (0.89-1.76); GLOMERULAR FILTRATION RATE > 90.0 (>60); NON-HDL-C 106.0 MG/DL; POTASSIUM SERUM 4.3 MMOL/L (3.5-5.1); SODIUM LEVEL 139 MMOL/L (136-145); TRIGLYCERIDES LEVEL 777 MG/DL (<150)
[2024-09-29 12:05] LABS: ESTIMATED AVERAGE GLUCOSE 108.0 MG/DL (60-110)
== END ==
LOC: M LAB REF 10:07
PROVIDERS: ATTEND Physician Assistant
DX: E11.9 Type 2 diabetes mellitus without complications (principal); E78.1 Pure hyperglyceridemia; E53.8 Deficiency of other specified B group vitamins; E66.01 Morbid (severe) obesity due to excess calories

== ENCOUNTER → 2024-12-28 | Outpatient (CLI) | payer BC ==
[2024-12-28 11:16] LABS: ALT/SGPT 33 U/L (7.0-40); AST/SGOT 21 U/L (<34); CALCIUM LEVEL 8.9 MG/DL (8.5-10.1); CARBON DIOXIDE LEVEL 27 MMOL/L (20-31); CHLORIDE LEVEL 104 MMOL/L (98-107); CHOLESTEROL LEVEL 110 MG/DL (<200); CHOLESTEROL RISK RATIO 4.93 (<5); CREATININE FOR GFR 0.95 MG/DL (0.70-1.30); GLOMERULAR FILTRATION RATE > 90.0 (>60); NON-HDL-C 87.7 MG/DL; POTASSIUM SERUM 4.5 MMOL/L (3.5-5.1); SODIUM LEVEL 141 MMOL/L (136-145); TRIGLYCERIDES LEVEL 581 MG/DL (<150)
[2024-12-28 12:19] LABS: ESTIMATED AVERAGE GLUCOSE 117.0 MG/DL (60-110)
== END ==
LOC: M LAB 09:54
PROVIDERS: ATTEND Physician Assistant
DX: E11.9 Type 2 diabetes mellitus without complications (principal); E66.01 Morbid (severe) obesity due to excess calories; K59.00 Constipation, unspecified; E78.1 Pure hyperglyceridemia